=== PATIENT | female | born 1970 | race Caucasian/White ===

== ENCOUNTER 2017-11-13 09:47 | Emergency (ER) | payer SELFPAY ==
[~2017-11-13] VITALS: Ht 170.2 cm; Wt 88.9 kg
[2017-11-13] MEDS ORDERED: PIOG15TA9 PO (10:10)
[2017-11-13] MEDS ORDERED: NAPR-1071 PO (10:15)
[2017-11-13 10:23] LABS: BILIRUBIN,URINE NEGATIVE (NEGATIVE); CLARITY,URINE SLIGHTLY CLOUDY; COLOR,URINE YELLOW; GLUCOSE, URINE (UA) 4+ (NEGATIVE); KETONES,URINE NEGATIVE (NEGATIVE); LEUKOCYTE ESTERASE ,URINE 1+ (NEGATIVE); NITRITE,URINE NEGATIVE (NEGATIVE); PH,URINE 5 (5-9); PROTEIN,URINE 1+ (NEGATIVE); UROBILINOGEN,URINE NORMAL (NORMAL)
[2017-11-13 10:38] LABS: BACTERIA,URINE TRACE /HPF; WBC,URINE RARE /HPF
--- NOTE | 2017-11-13 10:49 | ED General ---
General Chief Complaint: Back Problems Stated Complaint: RIGHT HIP PAIN Nursing Triage Note: PATIENT AMBULATORY TO ER COMPLAINING OF RIGHT HIP PAIN X 1 YEAR THAT SHE HAS BEEN SEEING DR ARRIAGA FOR CURRENTLY. ON WEDNESDAY PATIENT STATES PAIN INCREASINGLY GOT WORSE TO RIGHT FLANK AREA AND DESCRIBES PAIN SHARP PAIN. PATIENT DENIES ANY RECENT INJURIES. Nursing Sepsis Screen: No Definite Risk Source of Information: Patient Exam Limitations: No Limitations History of Present Illness Date Seen by Provider: Nov 13, 2017 Time Seen by Provider: 10:29 Initial Comments Here with her of right hip, leg and low back pain. This is a complicated story and case as this has been going on for a year now with multiple workups for blood clots and nerve conduction studies. These apparently have been negative. She was also seen by an oncologist due to muscle problems but she is unable to define that. So far, no one has found the cause of her pain. She reports that she had MRI of her back at some point and that was okay but she doesn't know exactly what the study was or what the results were otherwise. She's been seen at [facility] and [facility] as well as here. Patient lives in [place] but works in [place]. This is her first visit here. Timing/Duration: Getting Worse, Other (chronic for one year) Severity: Moderate Modifying Factors: worse with Movement Associated Systoms: No Chest Pain, No Fever/Chills, No Nausea/Vomiting, No Shortness of Air; Weakness (lateral toes of right foot and then increasingly leg weakness) Allergies and Home Medications Allergies Coded Allergies: No Known Drug Allergies (Unverified , 11/13/17) Home Medications Naproxen 500 Mg Tablet, 500 MG PO BID, (Reported) Pioglitazone HCl 15 Mg Tablet, 15 MG PO DAILY, (Reported) Patient Home Medication List Home Medication List Reviewed: Yes Review of Systems Review of Systems Constitutional: see HPI; No chills, No fever; weakness EENTM: no symptoms reported Respiratory: no symptoms reported Cardiovascular: no symptoms reported Gastrointestinal: constipation; No nausea, No vomiting Genitourinary: no symptoms reported Musculoskeletal: back pain, joint pain, joint swelling, muscle pain, muscle weakness Skin: no symptoms reported Psychiatric/Neurological: See HPI; Denies Headache Hematologic/Lymphatic: See HPI All Other Systems Reviewed Negative Unless Noted: Yes Past Eqsvuiw-Kkqdbr-Rzfpze Hx Past Med/Social Hx: Reviewed Nursing Past Med/Soc Hx Patient Social History Alcohol Use: Occasionally Uses Recreational Drug Use: No Smoking Status: Never a Smoker 2nd Hand Smoke Exposure: No Recent Foreign Travel: No Contact w/Someone Who Travel: No Recent Infectious Disease Expo: No Recent Hopitalizations: No Physical Abuse: No Sexual Abuse: No Mistreated: No Fear: No Seasonal Allergies Seasonal Allergies: No Past Medical History Surgeries: Yes Hysterectomy Respiratory: No Cardiac: No 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 oz. 88.075509fu; BMI Method:Stated General Appearance: WD/WN, Anxious, Mild Distress Neck: Full Range of Motion, Non Tender, Supple Respiratory: Lungs Clear, Normal Breath Sounds Cardiovascular: Regular Rate, Rhythm, No Murmur Gastrointestinal: Non Tender, Soft Back: Normal Inspection, No CVA Tenderness, No Vertebral Tenderness Extremity: Normal Range of Motion Neurologic/Psychiatric: Alert, Oriented x3 Skin: Normal Color, Warm/Dry Progress/Results/Core Measures Suspected Sepsis Recent Fever Within 48 Hours: No Infection Criteria Present: None New/Unexplained Altered Menta: No Sepsis Screen: No Definite Risk SIRS Temperature:98.9 Pulse: 67 Respiratory Rate: 16 Laboratory Tests 11/13/17 10:42: White Blood Count 8.1 Blood Pressure 138 /93 Mean: 108 Laboratory Tests 11/13/17 10:42: Creatinine 0.96, Platelet Count 213, Total Bilirubin 1.1H Results/Orders Lab Results Laboratory Tests Test 11/13/17 10:10 11/13/17 10:42 Range/Units Urine Color YELLOW Urine Clarity SLIGHTLY CLOUDY Urine pH 5 5-9 Urine Specific [place] 1.020 1.016-1.022 Urine Protein 1+ H NEGATIVE Urine Glucose (UA) 4+ H NEGATIVE Urine Ketones NEGATIVE NEGATIVE Urine Nitrite NEGATIVE NEGATIVE Urine Bilirubin NEGATIVE NEGATIVE Urine Urobilinogen NORMAL NORMAL MG/DL Urine Leukocyte Esterase 1+ H NEGATIVE Urine RBC (Auto) NEGATIVE NEGATIVE Urine RBC NONE /HPF Urine WBC RARE /HPF Urine Squamous Epithelial Cells 5-10 /HPF Urine Crystals NONE /LPF Urine Bacteria TRACE /HPF Urine Casts NONE /LPF Urine Mucus MODERATE H /LPF Urine Culture Indicated NO White Blood Count 8.1 4.3-11.0 10^3/uL Red Blood Count 5.31 4.35-5.85 10^6/uL Hemoglobin 16.6 H 11.5-16.0 G/DL Hematocrit 42 35-52 % Mean Corpuscular Volume 80 80-99 FL Mean Corpuscular Hemoglobin 31 25-34 PG Mean Corpuscular Hemoglobin Concent 39 H 32-36 G/DL Red Cell Distribution Width 12.9 10.0-14.5 % Platelet Count 213 130-400 10^3/uL Mean Platelet Volume 10.9 H 7.4-10.4 FL Neutrophils (%) (Auto) 66 42-75 % Lymphocytes (%) (Auto) 24 12-44 % Monocytes (%) (Auto) 9 0-12 % Eosinophils (%) (Auto) 1 0-10 % Basophils (%) (Auto) 0 0-10 % Neutrophils # (Auto) 5.4 1.8-7.8 X 10^3 Lymphocytes # (Auto) 1.9 1.0-4.0 X 10^3 Monocytes # (Auto) 0.7 0.0-1.0 X 10^3 Eosinophils # (Auto) 0.1 0.0-0.3 10^3/uL Basophils # (Auto) 0.0 0.0-0.1 10^3/uL Sodium Level 139 135-145 MMOL/L Potassium Level 4.0 3.6-5.0 MMOL/L Chloride Level 103 98-107 MMOL/L Carbon Dioxide Level 25 21-32 MMOL/L Anion Gap 11 5-14 MMOL/L Blood Urea Nitrogen 15 7-18 MG/DL Creatinine 0.96 0.60-1.30 MG/DL Estimat Glomerular Filtration Rate > 60 BUN/Creatinine Ratio 16 Glucose Level 280 H 70-105 MG/DL Calcium Level 9.7 8.5-10.1 MG/DL Corrected Calcium 9.5 8.5-10.1 MG/DL Total Bilirubin 1.1 H 0.1-1.0 MG/DL Aspartate Amino Transf (AST/SGOT) 14 5-34 U/L Alanine Aminotransferase (ALT/SGPT) 17 0-55 U/L Alkaline Phosphatase 85 40-136 U/L Total Protein 7.4 6.4-8.2 GM/DL Albumin 4.2 3.2-4.5 GM/DL My Orders Orders - TERRY MACDONALD MD Ua Culture If Indicated (11/13/17 10:11) Cbc With Automated Diff (11/13/17 10:41) Comprehensive Metabolic Panel (11/13/17 10:41) Pelvis With Right Hip 2-3views (11/13/17 10:41) Saline Lock/Iv-Start (11/13/17 10:41) Ct Abdomen/Pelvis W (11/13/17 11:46) Iohexol Injection (Omnipaque 350 Mg/Ml 1 (11/13/17 12:00) Ns (Ivpb) (Sodium Chloride 0.9%) (11/13/17 12:00) Medications Given in ED Current Medications Medications Dose Ordered Sig/Laura Route Start Time Stop Time Status Last Admin Dose Admin Iohexol 100 ml ONCE ONCE IV 11/13/17 12:00 11/13/17 12:01 DC 11/13/17 12:01 100 ML Sodium Chloride 250 ml ONCE ONCE IV 11/13/17 12:00 11/13/17 12:01 DC 11/13/17 12:01 80 ML Vital Signs/I&O 11/13/17 11/13/17 09:50 12:16 Temp 98.9 Pulse 67 60 Resp 16 16 B/P (MAP) 138/93 (108) 141/82 (101) Pulse Ox 99 O2 Delivery Room Air Room Air Capillary Refill : Less Than 3 Seconds Blood Pressure Mean: 108 Progress Note : Progress Note Seen and evaluated. Due to, acute case in history of lymphoma, we will check labs. I will go ahead and get x-ray of the right hip and pelvis. Consideration of pelvic mass as a cause of restricted blood flow. I will consider CT scan as eval progresses. 1150: Labs reviewed. We will go ahead and get CT scan to rule out mass in the low pelvis. This was discussed with the patient who agrees. 1245: CT results noted. These findings were discussed with the patient. She does have constipation and we did discuss outpatient therapy for that. We also discussed IV fluids to flush the contrast that she would like to try just drinking fluids. By mouth fluids given. Patient was instructed on increased fluid intake today to flush the contrast and the reason for that. Patient verbalize understanding. No masses noted. Patient was comforted by this. Overall non-concerning evaluation. Discharged home with return precautions. Patient verbalize understanding instructions and agreement with plan. Diagnostic Imaging Diagonstic Imaging: Xray Plain Films/CT/US/NM/MRI: pelvis, hip Comments VIA [facility]. [place], [place] NAME: ERIKA LOPEZ [facility] REC#: [id number] PT STATUS: REG ER : 1970 PHYSICIAN: TERRY MACDONALD MD ADMIT DATE: 11/13/17/ER Draft Date of Exam:11/13/17 PELVIS WITH RIGHT HIP 2-3VIEWS INDICATION: Pelvic pain, hip pain COMPARISON: None. FINDINGS: Single view of the pelvis, 2 views right hip demonstrate minimal degenerative joint disease. There was no acute fracture or dislocation. No osseous lesion. IMPRESSION: Minimal degenerative changes. Dictated on workstation # [id number] Dict: 11/13/17 1104 Trans: 11/13/17 1106 [facility] [id number] Interpreted by: KIET LEMA Electronically signed by: Diagonstic Imaging: CT Plain Films/CT/US/NM/MRI: abdomen, pelvis Comments NAME: ERIKA LOPEZ [facility] REC#: [id number] PT STATUS: REG ER : 1970 PHYSICIAN: TERRY MACDONALD MD ADMIT DATE: 11/13/17/ER Signed Date of Exam: 11/13/17 CT ABDOMEN/PELVIS W PROCEDURE: CT abdomen and pelvis with contrast. TECHNIQUE: Multiple contiguous axial images were obtained through the abdomen and pelvis after administration of intravenous contrast. INDICATION: Right flank and back pain, pelvic pain. COMPARISON: None. FINDINGS: Lung bases are clear. The gallbladder, solid organs, vascular structures and bowel are normal. There is no free air or free fluid. No mesenteric or retroperitoneal lymphadenopathy is seen. The appendix is normal. There is mild constipation within the rectosigmoid. Minimal diverticulosis in the sigmoid colon without diverticulitis. Otherwise, the course and caliber of large and small bowel normal. There is no hernia. No inflammatory process is seen. The uterus is surgically absent. Distal ureters and urinary bladder are normal. Osseous structures are age-appropriate. There is no joint effusion. IMPRESSION: 1. Constipation within the distal colon. Minimal diverticulosis in the descending and sigmoid colon. No diverticulitis. No bowel obstruction or inflammatory process identified. 2. Status post hysterectomy. 3. Remainder of the abdomen and pelvis is within normal limits. Dictated by: Dictated on workstation # [id number] Dict: 11/13/17 1214 Trans: 11/13/174 Interpreted by: KIET LEMA Electronically signed by: KIET LEMA 11/13/17 1224 Departure Impression Primary Impression: Right hip pain Additional Impressions: Constipation Qualified Codes: K59.00 - Constipation, unspecified Lumbar radiculopathy Disposition: HOME, SELF-CARE Condition: Stable Departure-Patient Inst. Decision time for Depature: 12:50 Referrals: JIMMY ARRIAGA DO (PCP) Primary Care Physician CARLOS EDUARDO BOOGIE MD Patient Instructions: Constipation, Adult (DC), Hip Pain (DC), Low Back Pain ( DC) Add. Discharge Instructions: All discharge instructions reviewed with patient and/or family. Voiced understanding. It is important that he drink plenty of fluids especially today. For the constipation, you may use MiraLAX or the generic, one capful twice daily for 3 days and then one half capful twice daily thereafter to achieve normal bowel movements. You may increase or decrease the dose to keep stool in normal range. He should follow up with your DrTico for recheck and further evaluation and within the next week. It would be very helpful for your doctor if you would get copy of your records for him from this visit including results of the CT and x-ray. Return for worse pain, fever, vomiting, weakness, breathing problems or other concerns as needed. Work/School Note: [employer] TERRY MACDONALD MD Nov 13, 2017 10:49
[2017-11-13 10:50] LABS: BASOPHILS % (AUTO) 0 % (0-10); EOSINOPHILS # (AUTO) 0.1 10^3/uL (0.0-0.3); EOSINOPHILS % (AUTO) 1 % (0-10); HEMATOCRIT 42 % (35-52); HEMOGLOBIN 16.6 G/DL (11.5-16.0); LYMPHOCYTES # (AUTO) 1.9 X 10^3 (1.0-4.0); LYMPHOCYTES % (AUTO) 24 % (12-44); MEAN CORPUSCULAR HEMOGLOBIN 31 PG (25-34); MEAN CORPUSCULAR HGB CONC 39 G/DL (32-36); MEAN CORPUSCULAR VOLUME 80 FL (80-99); MEAN PLATELET VOLUME 10.9 FL (7.4-10.4); MONOCYTES # (AUTO) 0.7 X 10^3 (0.0-1.0); MONOCYTES % (AUTO) 9 % (0-12); NEUTROPHILS # (AUTO) 5.4 X 10^3 (1.8-7.8); NEUTROPHILS % (AUTO) 66 % (42-75); PLATELET COUNT 213 10^3/uL (130-400); RED BLOOD COUNT 5.31 10^6/uL (4.35-5.85); RED CELL DISTRIBUTION WIDTH 12.9 % (10.0-14.5); WHITE BLOOD COUNT 8.1 10^3/uL (4.3-11.0)
--- NOTE | 2017-11-13 11:06 | Diagnostic Imaging Report ---
INDICATION: Pelvic pain, hip pain COMPARISON: None. FINDINGS: Single view of the pelvis, 2 views right hip demonstrate minimal degenerative joint disease. There was no acute fracture or dislocation. No osseous lesion. IMPRESSION: Minimal degenerative changes. Dictated by: Dictated on workstation # [id number]
[2017-11-13 11:09] LABS: ALANINE AMINOTRANSFERASE 17 U/L (0-55); ALBUMIN 4.2 GM/DL (3.2-4.5); ALKALINE PHOSPHATASE 85 U/L (40-136); BILIRUBIN,TOTAL 1.1 MG/DL (0.1-1.0); BUN/CREATININE RATIO 16; CALCIUM 9.7 MG/DL (8.5-10.1); CARBON DIOXIDE 25 MMOL/L (21-32); CHLORIDE 103 MMOL/L (98-107); CREATININE SERUM 0.96 MG/DL (0.60-1.30); GFR ESTIMATED > 60; GLUCOSE 280 MG/DL (70-105); SODIUM 139 MMOL/L (135-145); TOTAL PROTEIN 7.4 GM/DL (6.4-8.2)
[2017-11-13] MEDS ORDERED: NS 250 ML (IVPB) BAG IV ONE (12:00)
[2017-11-13] MEDS ORDERED: IOHEXOL 350 MG/ML 100 ML (OMNIPAQUE 350) VIAL IV ONE (12:00)
[2017-11-13 12:16] VITALS: BP 141/82
--- NOTE | 2017-11-13 12:23 | Diagnostic Imaging Report ---
PROCEDURE: CT abdomen and pelvis with contrast. TECHNIQUE: Multiple contiguous axial images were obtained through the abdomen and pelvis after administration of intravenous contrast. INDICATION: Right flank and back pain, pelvic pain. COMPARISON: None. FINDINGS: Lung bases are clear. The gallbladder, solid organs, vascular structures and bowel are normal. There is no free air or free fluid. No mesenteric or retroperitoneal lymphadenopathy is seen. The appendix is normal. There is mild constipation within the rectosigmoid. Minimal diverticulosis in the sigmoid colon without diverticulitis. Otherwise, the course and caliber of large and small bowel normal. There is no hernia. No inflammatory process is seen. The uterus is surgically absent. Distal ureters and urinary bladder are normal. Osseous structures are age-appropriate. There is no joint effusion. IMPRESSION: 1. Constipation within the distal colon. Minimal diverticulosis in the descending and sigmoid colon. No diverticulitis. No bowel obstruction or inflammatory process identified. 2. Status post hysterectomy. 3. Remainder of the abdomen and pelvis is within normal limits. Dictated by: Dictated on workstation # [id number]
[2017-11-13 13:03] VITALS: BP 135/86
== END 2017-11-13 13:03 | disposition home or self-care (01) ==
LOC: ER 09:50
DX: M25.551 Pain in right hip (principal); K59.00 Constipation, unspecified; M54.16 Radiculopathy, lumbar region; E11.9 Type 2 diabetes mellitus without complications; Z90.710 Acquired absence of both cervix and uterus; Z80.7 Family history of other malignant neoplasms of lymphoid, hematopoietic and related tissues
CPT/HCPCS: 36415; 74177; 80053; 81000; 85025

== ENCOUNTER → 2018-08-02 | Outpatient (CLI) | payer OTHER ==
[~2018-08-02] MED LIST: NAPR-1071 PO; PIOG15TA9 PO
--- NOTE | 2018-08-02 18:45 | Diagnostic Imaging Report ---
EXAMINATION: Magnetic resonance imaging of the pelvis and right hip without contrast DATE: August 02, 2018. COMPARISON: CT abdomen and pelvis November 13, 2017. INDICATION: 48-year-old female, right hip and femur pain. Swelling. TECHNIQUE: Magnetic Resonance Imaging sequences were performed of the pelvis and right hip without contrast. TENDONS AND MUSCLES: The gluteus adin muscles and their origins and insertions are intact bilaterally. There is mild right gluteus minimus tendinopathy. Both common hamstring attachments on the ischial tuberosities are intact and the extensor muscles of the thigh are intact. The visualized portions of the flexors and adductor muscles of the thigh and their attachments on the pelvis and hips are intact. Both iliopsoas and iliacus muscles are intact. The bilateral iliopsoas tendons are intact. HIPS AND SACROILIAC JOINTS: The contours of the femoral heads and acetabuli are smooth and symmetric. No hip joint effusion. There is no identified fluid-filled labral tear or paralabral cyst on non-arthrogram evaluation. The sacroiliac joints are unremarkable. LUMBAR SPINE: The visible portions of the lumbar spine are unremarkable on limited assessment. BONE: The bones all have normal configuration. The bone marrow signal is within normal limits. Specifically, negative for fracture, osteomyelitis, osteonecrosis, or marrow replacing process. BURSAE AND SOFT TISSUES: The bursae and soft tissues surrounding the pelvis and hips are within normal limits. IMPRESSION: 1. No acute fracture, bone contusion, or other bone marrow signal abnormality. 2. Mild right gluteus minimus tendinopathy. The additional muscles and tendons are intact. 3. Unremarkable appearance of the bilateral hip joints. Dictated by: Dictated on workstation # [id number]
== END ==
LOC: RAD 14:26
PROVIDERS: ATTEND Nurse Practitioner Family
DX: M67.853 Other specified disorders of tendon, right hip (principal); M79.89 Other specified soft tissue disorders
CPT/HCPCS: 73721

== ENCOUNTER → 2018-09-21 | Outpatient (CLI) | payer OTHER ==
--- NOTE | 2018-09-21 14:12 | Diagnostic Imaging Report ---
PROCEDURE: MRI right lower extremity without contrast. TECHNIQUE: Multiplanar, multisequence non contrast-enhanced MRI of the right lower extremity was accomplished. INDICATION: Right femur and pain and swelling. COMPARISON: None available. FINDINGS: The contralateral left thigh was included in multiple series for comparison purposes. The bilateral anterior, posterior and adductor compartments of the thighs have normal muscle bulk and signal intensity. Specifically, there are no features of muscle strain or tendon tear. No fascial fluid is present. The sciatic nerves have a normal appearance throughout the thighs. No marrow replacing process or focal lesion within the visualized aspects of both femurs. The right femoral head is visualized and has no features of osteonecrosis. IMPRESSION: Normal MRI of the right thigh. Dictated by: Dictated on workstation # [id number]
== END ==
LOC: RAD 12:15
PROVIDERS: ATTEND Family Medicine
DX: I89.0 Lymphedema, not elsewhere classified (principal)

== ENCOUNTER 2019-02-20 04:59 | Emergency (ER) | payer OTHER ==
[~2019-02-20] VITALS: Ht 170 cm; Wt 81.0 kg
[2019-02-20] MEDS ORDERED: ASPIRIN 81 MG CHEW (CHILDREN'S ASA) PO ONE (05:30)
--- NOTE | 2019-02-20 05:37 | ED Upper Extremity ---
General Chief Complaint: Upper Extremity Stated Complaint: L ARM PAIN AND SWOLLEN Source: patient Exam Limitations: no limitations History of Present Illness Date Seen by Provider: Feb 20, 2019 Time Seen by Provider: 05:20 Initial Comments Patient presents to ER by private conveyance chief complaint that since , 4 days ago she's been having some left shoulder pain. 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 She's had her family do some deep tissue massage. She also felt she had some swelling in her left axilla which was concerning. 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 Haque. She takes naproxen for her hip daily. She does not feel like this is helped her shoulder. The pain progressed got worse and it is banded into her left axilla and left upper anterior chest. She's not having any shortness of breath nausea fevers or chills. She does not have a history of heart disease but she does have a history of diabetes and hypertensi on but no hyperlipidemia or history of ever smoking. She does not use alcohol or drugs. She's felt no palpitations lightheadedness or irregular heartbeats. She is not up-to-date on mammograms. It is her left shoulder that is hurting her; she is right-handed. She has contacted her primary care doctor for appointment. Allergies and Home Medications Allergies Coded Allergies: No Known Drug Allergies (Unverified , 11/13/17) Home Medications Naproxen 500 Mg Tablet, 500 MG PO BID, (Reported) Pioglitazone HCl 15 Mg Tablet, 15 MG PO DAILY, (Reported) Patient Home Medication List Home Medication List Reviewed: Yes Review of Systems Constitutional: No chills, No diaphoresis EENTM: No ear discharge, No ear pain Respiratory: No cough, No short of breath Cardiovascular: see HPI, chest pain; No edema, No Hx of Intervention, No palpitations, No syncope, No vascular heart diseas Gastrointestinal: No abdominal pain, No constipation, No diarrhea, No nausea, No vomiting Genitourinary: No discharge, No dysuria Musculoskeletal: see HPI, joint pain All Other Systems Reviewed Negative Unless Noted: Yes Past Szmxvdz-Wkdwpy-Djnuua Hx Patient Social History Alcohol Use: Denies Use Recreational Drug Use: No Smoking Status: Never a Smoker 2nd Hand Smoke Exposure: No Recent Foreign Travel: No Contact w/Someone Who Travel: No Recent Hopitalizations: No Seasonal Allergies Seasonal Allergies: No Past Medical History Surgeries: Yes Hysterectomy Respiratory: No Cardiac: No Neurological: No SUPPORT COORDINATOR History: Hysterectomy Genitourinary: No Gastrointestinal: No Musculoskeletal: No Endocrine: Yes Diabetes, Non-Insulin dep HEENT: No Cancer: No Psychosocial: No Integumentary: No Blood Disorders: No Family Medical History Cancer Physical Exam Vital Signs Vital Signs - First Documented 02/20/19 05:20 Temp 36.7 Pulse 60 Resp 19 B/P (MAP) 148/92 (110) Pulse Ox 99 O2 Delivery Room Air Capillary Refill : Height, Weight, BMI Height: 5'7.00" Weight: 196lbs. oz. 88.379656fu; BMI Method:Stated General Appearance: WD/WN, mild distress HEENT: PERRL/EOMI, TMs normal, pharynx normal Neck: non-tender, full range of motion, supple, normal inspection Cardiovascular: normal peripheral pulses, regular rate, rhythm, no edema Respiratory: chest non-tender, lungs clear, normal breath sounds, no respiratory distress, no accessory muscle use Gastrointestinal: normal bowel sounds, non tender, soft Back: normal inspection, no vertebral tenderness Shoulder: normal inspection, normal ROM, soft tissue tenderness (Left: manipulation of the scapula is very tender. Both supraspinatus and infraspinatus. Strength testing of the rotator cuff muscles individually does not reveal any weakness or increased pain.) Elbow/Forearm: normal inspection, non-tender, no evidence of injury, normal ROM, Left Neurologic/Tendon: normal sensation, normal motor functions, normal tendon functions, responds to pain, no evidence tendon injury Neurologic/Psychiatric: alert, normal mood/affect, oriented x 3 Skin: normal color, warm/dry Procedures/Interventions Progress Point injection in the infraspinatus muscle belly where she points out the worst amount of pain. Half cc of bupivacaine 0.5% and half cc of lidocaine 2% with no epi. Patient tolerated procedure well. 23-gauge 1 and needle was used. Site was cleaned with alcohol and then covered with a Band-Aid. Progress/Results/Core Measures Results/Orders Lab Results Laboratory Tests Test 02/20/19 05:32 Range/Units White Blood Count 6.6 4.3-11.0 10^3/uL Red Blood Count 5.40 4.35-5.85 10^6/uL Hemoglobin 16.4 H 11.5-16.0 G/DL Hematocrit 43 35-52 % Mean Corpuscular Volume 80 80-99 FL Mean Corpuscular Hemoglobin 30 25-34 PG Mean Corpuscular Hemoglobin Concent 38 H 32-36 G/DL Red Cell Distribution Width 13.6 10.0-14.5 % Platelet Count 204 130-400 10^3/uL Mean Platelet Volume 11.0 H 7.4-10.4 FL Neutrophils (%) (Auto) 58 42-75 % Lymphocytes (%) (Auto) 29 12-44 % Monocytes (%) (Auto) 10 0-12 % Eosinophils (%) (Auto) 2 0-10 % Basophils (%) (Auto) 1 0-10 % Neutrophils # (Auto) 3.8 1.8-7.8 X 10^3 Lymphocytes # (Auto) 1.9 1.0-4.0 X 10^3 Monocytes # (Auto) 0.7 0.0-1.0 X 10^3 Eosinophils # (Auto) 0.2 0.0-0.3 10^3/uL Basophils # (Auto) 0.1 0.0-0.1 10^3/uL Sodium Level 139 135-145 MMOL/L Potassium Level 4.1 3.6-5.0 MMOL/L Chloride Level 106 98-107 MMOL/L Carbon Dioxide Level 23 21-32 MMOL/L Anion Gap 10 5-14 MMOL/L Blood Urea Nitrogen 15 7-18 MG/DL Creatinine 1.04 0.60-1.30 MG/DL Estimat Glomerular Filtration Rate 56 BUN/Creatinine Ratio 14 Glucose Level 290 H 70-105 MG/DL Calcium Level 9.1 8.5-10.1 MG/DL Corrected Calcium 9.1 8.5-10.1 MG/DL Total Bilirubin 0.9 0.1-1.0 MG/DL Aspartate Amino Transf (AST/SGOT) 15 5-34 U/L Alanine Aminotransferase (ALT/SGPT) 16 0-55 U/L Alkaline Phosphatase 90 40-136 U/L Troponin I < 0.028 <0.028 NG/ML Total Protein 6.9 6.4-8.2 GM/DL Albumin 4.0 3.2-4.5 GM/DL My Orders Orders - D[employer]ER Shoulder, Left, 3 Views (02/20/19 05:28) Ed Iv/Invasive Line Start (02/20/19 05:28) Cbc With Automated Diff (02/20/19 05:28) Comprehensive Metabolic Panel (02/20/19 05:28) Troponin I (02/20/19 05:28) Ekg Tracing (02/20/19 05:28) Continuous Ekg Monitoring (02/20/19 05:28) Aspirin Chewable Tablet (Baby Aspirin Ch (02/20/19 05:30) Lidocaine 1% Inj 20 Ml (Xylocaine 1% Inj (02/20/19 06:15) Ketorolac Injection (Toradol Injection) (02/20/19 06:30) Vital Signs/I&O 02/20/19 05:20 Temp 36.7 Pulse 60 Resp 19 B/P (MAP) 148/92 (110) Pulse Ox 99 O2 Delivery Room Air Progress Progress Note #1: Time: 05:40 Progress Note Examination of the individual rotator cuff muscles do feel weakness so tendon tear is less likely however She could still have muscular tear or myofascial type pain. If her initial EKG and troponin are normal after nearly 5 days of this pain would do willing to treat this as musculoskeletal give her some Toradol and maybe a point injection of lidocaine in the shoulder. An x-ray of the shoulder may reveal osteoarthritis. We'll give her 324 mg of aspirin while she waits for her workup. No evidence of a shingles rash. We'll put her in a gown and examined the axilla for lymphadenopathy. Progress Note #2: Time: 06:23 Progress Note Suspect myofascial pain. Plan to give an infection of Toradol 15 mg since she is already on naproxen and point injection. She would prefer not to use any kind of opiates or narcotics and we would agree with this plan. Neither of her axilla demonstrate significant swelling or lymphadenopathy. Initial ECG Impression Date: Feb 20, 2019 Initial ECG Impression Time: 05:27 Initial ECG Rate: 52 Initial ECG Rhythm: Normal Sinus Initial ECG Intervals: Normal Initial ECG Impression: Normal Comment Normal sinus rhythm without ST elevation or depression. Diagnostic Imaging Diagonstic Imaging: Xray Plain Films/CT/US/NM/MRI: other (left shoulder) Comments No acute osseous abnormalities noted. No significant osteoarthritis seen. Reviewed: Reviewed by Me Departure Impression Primary Impression: Myofascial pain on left side Additional Impression: Pain of left scapula Disposition: HOME, SELF-CARE Condition: Stable Departure-Patient Inst. Decision time for Depature: 06:42 Referrals: ZITA HAQUE MD (PCP/Family) Primary Care Physician Patient Instructions: Rotator Cuff Tendinitis Stretching Exercises Add. Discharge Instructions: Continue taking your naproxen. Follow-up with primary care in the next 1-2 weeks. Massage, chiropractor, physical therapy can be helpful. Topical creams such as icy hot, Aspercreme or Biofreeze may be helpful. Tylenol 1000 mg every 8 hours in addition to your naproxen may be helpful. All discharge instructions reviewed with patient and/or family. Voiced understanding. Work/School Note: Work Release Form Date Seen in the Emergency Department: Feb 20, 2019 Return to Work: Feb 20, 2019 Restrictions: No Restrictions D[employer]ER Feb 20, 2019 05:37
[2019-02-20 05:42] LABS: BASOPHILS # (AUTO) 0.1 10^3/uL (0.0-0.1); BASOPHILS % (AUTO) 1 % (0-10); EOSINOPHILS # (AUTO) 0.2 10^3/uL (0.0-0.3); EOSINOPHILS % (AUTO) 2 % (0-10); HEMATOCRIT 43 % (35-52); HEMOGLOBIN 16.4 G/DL (11.5-16.0); LYMPHOCYTES # (AUTO) 1.9 X 10^3 (1.0-4.0); LYMPHOCYTES % (AUTO) 29 % (12-44); MEAN CORPUSCULAR HEMOGLOBIN 30 PG (25-34); MEAN CORPUSCULAR HGB CONC 38 G/DL (32-36); MEAN CORPUSCULAR VOLUME 80 FL (80-99); MONOCYTES # (AUTO) 0.7 X 10^3 (0.0-1.0); MONOCYTES % (AUTO) 10 % (0-12); NEUTROPHILS # (AUTO) 3.8 X 10^3 (1.8-7.8); NEUTROPHILS % (AUTO) 58 % (42-75); PLATELET COUNT 204 10^3/uL (130-400); RED CELL DISTRIBUTION WIDTH 13.6 % (10.0-14.5); WHITE BLOOD COUNT 6.6 10^3/uL (4.3-11.0)
[2019-02-20 06:00] LABS: ALANINE AMINOTRANSFERASE 16 U/L (0-55); ALKALINE PHOSPHATASE 90 U/L (40-136); BILIRUBIN,TOTAL 0.9 MG/DL (0.1-1.0); BUN/CREATININE RATIO 14; CALCIUM 9.1 MG/DL (8.5-10.1); CARBON DIOXIDE 23 MMOL/L (21-32); CHLORIDE 106 MMOL/L (98-107); CREATININE SERUM 1.04 MG/DL (0.60-1.30); GFR ESTIMATED 56; GLUCOSE 290 MG/DL (70-105); POTASSIUM 4.1 MMOL/L (3.6-5.0); SODIUM 139 MMOL/L (135-145); TOTAL PROTEIN 6.9 GM/DL (6.4-8.2)
[2019-02-20] MEDS ORDERED: LIDOCAINE 1% INJ 20 ML 20 ML VIAL INJ ONE (06:15)
[2019-02-20] MEDS ORDERED: KETOROLAC 30 MG/ML VIAL IVP ONE (06:30)
[2019-02-20 06:44] VITALS: BP 127/78
--- NOTE | 2019-02-20 06:50 | Diagnostic Imaging Report ---
CLINICAL HISTORY: Left shoulder pain. COMPARISON: None TECHNIQUE: 3 views of the left shoulder. FINDINGS: There is no acute fracture or dislocation of the left shoulder. Alignment is anatomic. The imaged joint spaces are preserved. No joint effusion is seen in the left shoulder. The surrounding soft tissues are unremarkable. IMPRESSION: 1. No acute fracture or dislocation in the left shoulder. Dictated by: Dictated on workstation # [id number]
== END 2019-02-20 06:48 | disposition home or self-care (01) ==
LOC: EDUNIT# 04:59 → ER 05:00
DX: M79.18 Myalgia, other site (principal); M25.512 Pain in left shoulder; E11.9 Type 2 diabetes mellitus without complications; I10 Essential (primary) hypertension; Z90.710 Acquired absence of both cervix and uterus
CPT/HCPCS: 36415; 73030; 80053; 84484; 85025; 93005; 96374

== ENCOUNTER → 2019-07-07 | Outpatient (CLI) | payer OTHER ==
--- NOTE | 2019-07-07 09:27 | Diagnostic Imaging Report ---
PROCEDURE: US Abdomen, limited. TECHNIQUE: Multiple realtime grayscale images were obtained over the abdomen in various projections. INDICATION: Swelling in the right groin. Sonographic interrogation of the right inguinal canal was performed both with and without Valsalva maneuvers. No defect or hernia is detected. No enlarged lymph nodes are detected. No mass or fluid collection is seen. IMPRESSION: Unremarkable right groin ultrasound. Dictated by: Dictated on workstation # [id number]
== END ==
LOC: RAD 08:28
PROVIDERS: ATTEND Nurse Practitioner Family
DX: R59.0 Localized enlarged lymph nodes (principal); R19.09 Other intra-abdominal and pelvic swelling, mass and lump
CPT/HCPCS: 76705

== ENCOUNTER → 2019-07-24 | Outpatient (CLI) | payer OTHER ==
--- NOTE | 2019-07-24 10:19 | Diagnostic Imaging Report ---
INDICATION: Left leg swelling. Sonographic interrogation area of swelling in the left calf was performed. No sonographic abnormality is seen. No solid or cystic mass or fluid collection is identified. IMPRESSION: No sonographic abnormality is detected. Dictated by: Dictated on workstation # [id number]
== END ==
LOC: RAD 08:22
PROVIDERS: ATTEND Nurse Practitioner Family
DX: R22.42 Localized swelling, mass and lump, left lower limb (principal)
CPT/HCPCS: 76881

== ENCOUNTER → 2019-10-20 | Outpatient (CLI) | payer OTHER ==
--- NOTE | 2019-10-20 09:33 | Diagnostic Imaging Report ---
PROCEDURE: US Thyroid. TECHNIQUE: Multiple real-time grayscale images were obtained of the thyroid in various projections. INDICATION: Thyroid nodules. No prior studies are available for comparison. Right lobe of thyroid measures 5.0 x 1.7 x 1.4 cm and left lobe measures 5.0 x 1.6 x 1.3 cm. The isthmus is 3 mm in thickness. Both lobes of thyroid are heterogeneous. There is a circumscribed hypoechoic nodule upper pole right lobe of thyroid measuring 11 mm x 6 mm x 9 mm. No microcalcifications are seen. Hypoechoic nodule in the lower pole right lobe is identified measuring 9 mm x 8 mm x 5 mm. No microcalcifications are identified. Circumscribed nodule in the mid left lobe measures 10 mm x 5 mm x 6 mm. A smaller nodule measures approximately 8 mm x 6 mm x 4 mm. No microcalcific lesions are seen. No dominant mass is identified. IMPRESSION: Multinodular thyroid suggestive of multinodular goiter. Followup ultrasound in 6 months could be performed to confirm stability. Dictated by: Dictated on workstation # [id number]
== END ==
LOC: RAD 09:00
PROVIDERS: ATTEND Nurse Practitioner Family
DX: E04.2 Nontoxic multinodular goiter (principal)
CPT/HCPCS: 76536

== ENCOUNTER → 2020-04-18 | Outpatient (CLI) | payer OTHER ==
--- NOTE | 2020-04-18 14:21 | Diagnostic Imaging Report ---
PROCEDURE: US Thyroid. TECHNIQUE: Multiple real-time grayscale images were obtained of the thyroid in various projections. INDICATION: Thyroid nodule, six-month follow-up. Correlation is made with prior thyroid ultrasound from 10/20/2019. Right lobe of thyroid measures 5.1 x 1.2 x 1.6 cm and left lobe measures 5.3 x 1.3 x 1.3 cm. Isthmus 3 mm in thickness. There is a hypoechoic nodule in the upper pole right lobe approximately 10 mm in size, stable. Hypoechoic nodules mid lower pole right lobe are also noted, largest lower pole approximately 8 to 9 mm, stable. The left lobe contains a hypoechoic nodule in the midportion approximately 10 mm in size, stable. There is a lower pole nodule on the left approximately 7 mm in size, not well-seen on prior exam. IMPRESSION: Overall stable thyroid ultrasound when compared to exam from 10/20/2019 with the exception of a questionable new nodule lower pole left lobe approximately 7 mm in size. No dominant mass is detected. Continued follow-up with repeat study in 6 months is recommended to show continued stability. Dictated by: Dictated on workstation # [id number]
== END ==
LOC: RAD 08:00
PROVIDERS: ATTEND Nurse Practitioner Family
DX: E04.1 Nontoxic single thyroid nodule (principal)
CPT/HCPCS: 76536

== ENCOUNTER → 2020-12-18 | Outpatient (CLI) | payer OTHER ==
--- NOTE | 2020-12-18 08:38 | Diagnostic Imaging Report ---
PROCEDURE: US Thyroid. TECHNIQUE: Multiple real-time grayscale images were obtained of the thyroid in various projections. INDICATION: Thyroid nodules. Follow-up The right lobe measures approximately 2 x 5.5 cm. The left lobe measures approximately 1.7 x 4.7 cm. There are at least 4 nodules on the right with the largest measuring 12 mm. There are 2 nodules on the left with the largest measuring 11 mm. No abnormal vascularity is demonstrated. The overall appearance is similar to the 04/18/2020 study. IMPRESSION: There are multiple bilateral nodules most consistent with multinodular goiter with no significant change from the prior study. Dictated by: Dictated on workstation # [id number]
== END ==
LOC: RAD 08:00
PROVIDERS: ATTEND Nurse Practitioner Family
DX: E04.2 Nontoxic multinodular goiter (principal)
CPT/HCPCS: 76536

== ENCOUNTER → 2022-04-21 | Outpatient (CLI) | payer OTHER ==
--- NOTE | 2022-04-21 12:48 | Diagnostic Imaging Report ---
HISTORY: Right posterior rib pain. TECHNIQUE: Three views of the right ribs. COMPARISON: None. FINDINGS: Right lung volume is low but no consolidation is seen. There is no pleural effusion or pneumothorax. Pacemaker leads are partially seen. No displaced rib fractures are seen. IMPRESSION: No right rib fracture is seen. Dictated by: Dictated on workstation # [id number]
--- NOTE | 2022-04-21 12:49 | Diagnostic Imaging Report ---
HISTORY: Upper back pain. TECHNIQUE: Two views of the thoracic spine. COMPARISON: None. FINDINGS: There is mild right convex curvature of the thoracic spine with mildly exaggerated kyphosis. No spondylolisthesis is seen. Vertebral body heights generally appear preserved. No acute fracture is seen. Disc heights are generally preserved. IMPRESSION: Mild right convex curvature and exaggerated kyphosis of the thoracic spine with no acute osseous abnormality seen. Dictated by: Dictated on workstation # [id number]
== END ==
LOC: RAD 09:28
PROVIDERS: ATTEND Nurse Practitioner Family
DX: M40.294 Other kyphosis, thoracic region (principal); R07.81 Pleurodynia
CPT/HCPCS: 71100; 72072